=== PATIENT | male | born 1945 | race Caucasian/White ===

== ENCOUNTER → 2023-07-02 07:36 | Outpatient (REF) | payer MEDICARE, OTHER, SELFPAY ==
[2023-07-02 08:16] LABS: % Basophils 0.5 % (0-2); % Eosinophils 2.5 % (0-6); % Immature Granulocytes 0.3 % (0-0.5); % Lymphocytes 27.4 % (20.5-51.1); % Monocytes 10.2 % (1.7-9.3); % Neutrophils 59.1 % (42.2-75.2); Absolute Eosinophils 0.2 10^3/uL (0-0.7); Absolute Lymphocytes 1.7 10^3/uL (1.2-3.4); Absolute Monocytes 0.6 10^3/uL (0.1-0.6); Absolute Neutrophils 3.6 10^3/uL (1.4-6.5); Hematocrit 49.1 % (39.0-52.0); Hemoglobin 16.6 g/dL (13.0-18.0); Mean Corp Hgb Conc. 33.8 g/dL (33.0-37.0); Mean Corpuscular Hgb 30.3 pg (27.0-31.0); Mean Corpuscular Volume 89.6 fL (80.0-94.0); Mean Platelet Volume 9.3 fL (7.4-10.4); Nucleated Red Blood Cells % 0 % (-); Platelet Count 214 10^3/uL (130-400); Red Blood Cell Count 5.48 10^6/uL (4.70-6.10); Red Cell Dist. Width 13.7 % (11.5-14.5); White Blood Cell Count 6.1 10^3/uL (4.8-10.8)
[2023-07-02 09:04] LABS: ALT (SGPT) 35 U/L (0-50); AST (SGOT) 32 U/L (17-59); Albumin 4.2 g/dl (3.5-5.0); Alkaline Phosphatase 82 U/L (38-126); Blood Urea Nitrogen 17 mg/dl (9-20); Calcium 9.7 mg/dl (8.4-10.2); Carbon Dioxide 25 mmol/L (22-30); Chloride 106 mmol/L (98-107); Glucose 102 mg/dl (70-99); HDL Cholesterol 63 mg/dl; LDL Cholesterol, Calculated 108 mg/dl; Potassium 4.5 mmol/L (3.5-5.1); Sodium 138 mmol/L (135-145); Total Bilirubin 0.7 mg/dl (0.2-1.3); Total Cholesterol 194 mg/dl (50-199); Total Protein 7.1 g/dl (6.3-8.2); Triglyceride 115 mg/dl (10-149); Very Low Density Lipoprotein 23 mg/dl (0-30); eGFR > 60.00
[2023-07-02 09:23] LABS: TSH Reflex To Free T4 3.91 uIU/ml (0.47-4.68)
== END ==
LOC: REG 07:36
PROVIDERS: ATTENDING PHYSICIAN Internal Medicine
DX: I10 Essential (primary) hypertension (principal); R06.02 Shortness of breath; R53.83 Other fatigue
CPT/HCPCS: 36415; 80053; 80061; 84443; 85025

== ENCOUNTER 2024-01-15 08:21 | Emergency (ER) | payer MEDICARE, OTHER, SELFPAY ==
[2024-01-15] VITALS (14 sets, daily range): BP systolic 119–156; BP diastolic 78–104; PULSE 57–65
--- NOTE | 2024-01-15 08:54 | ED.GENMED ---
History of Present Illness
General
Chief Complaint: Fall
Source: patient, records and family
Time Seen by Provider: 01/15/24 08:35
History of Present Illness
History of Present Illness:
This patient is a very pleasant 79-year-old male who was feeling his usual self when he woke up. He fed the deer as he typically does and then went for a walk. As he was walking he had the somewhat abrupt onset of lightheadedness and promptly fell
down. He did hit his head and has an abrasion to the left forehead as a result. He states that people were nearby and promptly came over to him, he was conscious at that time but he suspects that he did lose consciousness, lasting just a few
seconds to less than a minute. He describes falling over and trying to hold onto the mailbox, and the mailbox fell down with him. He denies neck pain, severe headache, change in vision, numbness, tingling, focal weakness, or other complaints. He
says he still feels slight lightheadedness. He denies chest pain, dyspnea, nausea, vomiting. He is up-to-date on tetanus. 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 Echo from that visit
reviewed by me.
Past History
Past History
ED Past Medical History: GERD and Other (PE); Negative HTN or IDDM
ED Past Surgical History: Appendectomy, Orthopedic and Other
Social History
Tobacco: Non-smoker
Alcohol: Daily
Drug: None
Personal:
Living: with family
Employment: Retired
Family History
Family History: Other (Brother with an [place] at 50 years old)
Phy Exam
Physical Exam
Physical Exam:
GENERAL: Alert , in no apparent distress, pleasant, making jokes
EYE: pupils equal and reactive, EOMI, no nystagmus, no photophobia
NECK: Supple, no significant adenopathy, no midline tenderness.
ENT: o/p clr, mmm, no brunson, no raccoon..
CARDIAC: Regular rate and rhythm .
LUNGS: Clear breath sounds bilaterally, no acute respiratory distress, no wheezes/rales/rhonchi
ABDOMEN: Soft, without focal tenderness, no r/g, no cvat
NEUROLOGICAL: Alert and oriented, no focal neuro deficits, motor 5 out of 5, sensory intact, cranial nerves II through XII intact
SKIN: Warm and dry, skin intact except for superficial abrasion x 2 noted at the left forehead and just superior to the left lateral eyebrow area without actual laceration or active bleeding.
MUSCULOSKELETAL: No edema, well perfused.
PSYCH: Normal and appropriate interaction.
Course
Orders/Labs/Results
Orders:
Orders
01/15/24 08:31
Electrocardiogram (*1) Urgent
Reason for Study: Syncope
EKG- Treatment ONCE
01/15/24 08:51
Basic Metabolic Panel Urgent
Complete Blood Count/With Diff Urgent
Troponin I Urgent
01/15/24 08:53
CT Head W/o Iv Contrast Urgent
Comment:
Reason For Exam: fall on doac
01/15/24 08:[address] Non Medication Order As Directed
Physician Order: orthostatics
Above order entered?: Yes
01/15/24 11:33
Echo 2D MMode Color/Doppler Urgent
Reason for Study: abrupt syncope, h/o PE
Cardiology Consult: Dex Price
Comment: Can come over from the ER. WE.
Abnormal Lab Results
01/15/24
08:51
MCH 31.4 H pg
(27.0-31.0)
Absolute Monos (auto) 0.7 H 10^3/uL
(0.1-0.6)
Monocytes % 11.2 H %
(1.7-9.3)
Carbon Dioxide 21 L mmol/L
(22-30)
Glucose 105 H mg/dl
(70-99)
01/15/24 08:51
01/15/24 08:51
Vital Signs
Initial and Last Documented VS:
Initial Vital Signs
Temp Pulse Resp BP Pulse Ox
98.0 F 56 18 135/99 98
01/15/24 08:28 01/15/24 08:28 01/15/24 08:28 01/15/24 08:28 01/15/24 08:28
Last Documented Vital Signs
Temp Pulse Resp BP Pulse Ox
98.0 F 57 13 145/84 98
01/15/24 08:28 01/15/24 15:00 01/15/24 15:00 01/15/24 15:00 01/15/24 08:28
*Critical Care Note
Total Time (30-74mins, 75-104mins- exclusive of procedures): Not Applicable
Update Note
Update Note:
Patient presents to the Emergency Department with ____fall/syncope
Number and Complexity of Problems Addressed at the Encounter
� Chronic conditions affecting care:
� Acute Exacerbation and/or Progression of Chronic Illness:
� Differential Diagnosis includes: But not limited to intracranial bleed, arrhythmia, hypovolemia, vasovagal event, etc.
Amount and/or Complexity of Data to be Reviewed and Analyzed
� I performed an independent evaluation of and my interpretation is:
EKG: Read by me, sinus bradycardia, incomplete right bundle, no acute ischemia
CT: head ct nad
Xrays:
Laboratory Studies:generally unremarkable
Other:echo from today: Normal left ventricular size, wall thickness and systolic function. No regional
wall motion abnormalities are seen. LV ejection fraction is 60-65%.
Mild mitral regurgitation.
Mild tricuspid regurgitation.
Compared to the previous echo from Mar 2023, there is no significant change.
� Review of other/old records reveals: Patient had a similar event in 2015, was discharged from the hospital/ER and followed up with cardiology without any specific new recommendations and is followed yearly by cardiology.
Echocardiogram March 2023 shows an LV EF of 65 to 70%, normal LV size, normal diastolic and systolic function, no wall motion abnormalities noted
� Clinical information was obtained by an independent historian: Daughter and were at bedside
� Prescriptions/Medications Considered but not given:
� Further testing considered but not performed: Given lack of cervical tenderness or neurological findings distracting injury or confusion, can defer CT of cervical spine
Risk of Complications and/or Morbidity or Mortality of Patient Management
� Social determinants of health affecting care:
� Discussion with other providers (PCP, Hospitalists, Consultants, etc):
� Escalation of care including admission/observation vs risk of discharge considered: Case discussed with cardiology who saw patient in consult, performed an echocardiogram which was generally unremarkable, and plan to place a
Holter monitor on the patient before discharge. Discussed with patient importance of follow-up and reasons return to the ER
ED Attending Note
-
Portions of this chart may have been created with voice recognition software.� Occasional wrong word or��sound alike� substitutions may have occurred due to the inherent limitations of voice recognition software.
Discharge Plan
Departure
Patient Disposition: Home (Routine Discharge)
Date of Disposition: 01/15/24
Time of Disposition: 14:42
Patient with high blood pressure during this ER visit?: Yes
Condition: Good
Discharge Problem:
Syncope
Instructions: Syncope (fainting), Head Injury in Adults (DC), Skin Abrasions (DC), BLOOD PRESSURE
Prescriptions:
No Action
Eliquis 5 mg Tablet
10 mg PO BID Qty: 90 0RF
Rx Instructions:
10 mg bid for 7 days for 7 days and
5 mg bid after
Referrals:
Gissell Nieto MD [Family Provider] - Next open appointment
Activity Restrictions/Additional Instructions:
PLEASE SEE THE RAILROAD PASSENGER AGENT DIRECTED. IF YOU DEVELOP CHEST PAIN, SHORTNESS OF BREATH, DIZZINESS, SUFFER ANOTHER FALL, BLEEDING, SEVERE HEADACHE, NUMBNESS, OR OTHER WORRISOME SIGNS, RETURN TO THE ER IMMEDIATELY.
Interventions
Interventions:
*Risk Screen - Suicide Last Done: 01/15/24 08:28
*General Assessment Last Done: 01/15/24 08:28
*Neglect/Abuse Screening Last Done: 01/15/24 08:28
ED- Fall Risk Assessment Last Done: 01/15/24 10:41
*ED COVID-19 Vaccine History Last Done: 01/15/24 10:41
*Nursing Disposition Last Done: 01/15/24 15:11
ED- Cardiac Assessment Last Done: 01/15/24 10:41
ED-Musculoskeletal Assessment Last Done: 01/15/24 10:41
ED- Neurological Assessment Last Done: 01/15/24 10:38
ED-Skin Assessment Last Done: 01/15/24 10:41
Discharge Date and Time
Discharge Date/Time: 01/15/24 15:11
Print Language: PANAMANIAN
[2024-01-15 09:04] LABS: % Basophils 0.3 % (0-2); % Eosinophils 2.6 % (0-6); % Immature Granulocytes 0.5 % (0-0.5); % Lymphocytes 24.2 % (20.5-51.1); % Monocytes 11.2 % (1.7-9.3); % Neutrophils 61.2 % (42.2-75.2); Absolute Eosinophils 0.2 10^3/uL (0-0.7); Absolute Lymphocytes 1.6 10^3/uL (1.2-3.4); Absolute Monocytes 0.7 10^3/uL (0.1-0.6); Hematocrit 46.1 % (39.0-52.0); Mean Corp Hgb Conc. 34.7 g/dL (33.0-37.0); Mean Corpuscular Hgb 31.4 pg (27.0-31.0); Mean Corpuscular Volume 90.6 fL (80.0-94.0); Mean Platelet Volume 9.5 fL (7.4-10.4); Nucleated Red Blood Cells % 0 % (-); Platelet Count 186 10^3/uL (130-400); Red Blood Cell Count 5.09 10^6/uL (4.70-6.10); White Blood Cell Count 6.5 10^3/uL (4.8-10.8)
[2024-01-15 09:29] LABS: Troponin I < 0.012 ng/ml
[2024-01-15 09:30] LABS: Blood Urea Nitrogen 20 mg/dl (9-20); Calcium 9.4 mg/dl (8.4-10.2); Carbon Dioxide 21 mmol/L (22-30); Chloride 107 mmol/L (98-107); Glucose 105 mg/dl (70-99); Potassium 3.9 mmol/L (3.5-5.1); Sodium 142 mmol/L (135-145); eGFR > 60.00
--- NOTE | 2024-01-15 12:36 | CON.CAR ---
Addendum entered and electronically signed by Dex Price DO 01/15/24 15:05:
I saw and examined the patient.
The Automatic Hemmer's note was reviewed and I agree with the note.
Comment:
Plan:
Syncope episode possibly vasovagal but no hypotension in ER or orthostasis.
Echo urgent done today shows preserved EF and no significant valve disease
7 day BardyCAM placed today
Discussed conservative measures to avoid dizziness and vasovagal syncope.
EKG no acute changes, trop negative.
he will call with recurrent symptoms
he takes Eliquis for hx of DVT/PE.
He already has follow up arranged with his crystal evaluator Dr Bassam Melchor.
Discussed with ER
Original Note:
Consultation
Consultation Request
Date/Time Consultation Requested: 01/15/24
Date/Time Consultation Performed: 01/15/24
Requesting Provider: Dr. Marshall in the ER
Performing Provider: Dr. Price
Reason for Consultation: Syncope
Medical History
-
History of Present Illness:
Patient came to [facility] today after an episode of syncope and cardiology has been consulted. Patient awoke in his usual state of health and ate breakfast. He was able to carry buckets of deer feed without chest pain, SOB or lightheadedness. Patient
then went on his usual morning walk and when he was close to home he started to feel lightheaded. Patient kept walking and lightheadedness persisted. Patient tried to lean on a neighbor's mailbox and felt himself pass out and start to fall. People
standing near by saw patient fall and helped him stand up. Patient was still a bit lightheaded when he stood up, but was then able to walk back home with the bystander. In [facility] orthostatic VS were normal. No significant pauses on tele. ECG stable
with sinus bradycardia and IC RBBB, QTc 399 by my review. Patient has a h/o lightheadedness and sinus bradycardia that was evaluated with 5 day monitor in 2016 and HR was 46-104 at that time with average HR 64 and no arrhythmia or pauses. Patient
wore a 48 hour Holter monitor 11/2018 with average HR 41-102 bpm and average HR 61 with a 7 beat run of PAT and up to 2 second conversion pauses.
PMH:
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
Chronic Eliquis OAC
HTN
Sinus bradycardia
Past Medical History
Past Medical History: Other (in HPI)
Past Surgical History: Appendectomy and Orthopedic
Social History
Tobacco: Non-Smoker
Alcohol: Occasional (2-4 times a month)
Drug: None
Personal:
Living: With Family
Family History
Family History: CAD
Allergies / Home Medications
Allergy/AdvReac Type Severity Reaction Status Date / Time
No Known Allergies Allergy Verified 01/15/24 08:27
�Medication �Instructions �Recorded �Confirmed �Type
apixaban 5 mg tablet (Eliquis) 10 mg (2 x 5 mg) PO BID #90 tabs 04/01/23 Rx
Review of Systems
-
History Source: Patient and Family ( and daughter bedside helping with HPI)
All other systems: Negative unless noted
Physical Exam
Vital Signs
Temp Pulse Resp BP Pulse Ox
98.0 F 60 12 137/82 98
01/15/24 08:28 01/15/24 12:00 01/15/24 12:00 01/15/24 12:00 01/15/24 08:28
GEN: NAD. AAOx3
HEENT: EOMI, MMM
LUNGS: CTA B/L, no wheezes/rales
CV: Reg, S1/S2, no murmur
ABD: soft, BS+, NT, ND
EXT: +1 B/L LE edema. No clubbing, cyanosis or lesions B/L
NEURO: Gross non-focal
SKIN: Warm, dry and pink. No rash
Lab Results
01/15/24 08:51
01/15/24 08:51
Troponin I < 0.012 ng/ml 01/15/24 08:51
Impression / Plan
-
PCP: Dr. Eliu Abreu
Cardiology: Dr. Norris Melchor
Impression:
Syncope
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
Chronic Eliquis OAC
HTN
Sinus bradycardia
Echo 03/30/2023: EF 65 to 70%, normal RV size and function, trace MR
Plan:
-Patient came to [facility] today after an episode of syncope and cardiology has been consulted. Patient awoke in his usual state of health and ate breakfast. He was able to carry buckets of deer feed without chest pain, SOB or lightheadedness. Patient
then went on his usual morning walk and when he was close to home he started to feel lightheaded. Patient kept walking and lightheadedness persisted. Patient tried to lean on a neighbor's mailbox and felt himself pass out and start to fall. People
standing near by saw patient fall and helped him stand up. Patient was still a bit lightheaded when he stood up, but was then able to walk back home with the bystander. In [facility] orthostatic VS were normal. No significant pauses on tele. ECG stable
with sinus bradycardia and IC RBBB, QTc 399 by my review. Patient has a h/o lightheadedness and sinus bradycardia that was evaluated with 5 day monitor in 2015 and HR was 46-104 at that time with average HR 64 and no arrhythmia or pauses. Patient
wore a 48 hour Holter monitor 11/2018 with average HR 41-102 bpm and average HR 61 with a 7 beat run of PAT and up to 2 second conversion pauses.
-Orthostatic VS repeated by me in the ER and supine 142/80 HR 52, sitting 143/95 HR 58 and standing 156/92 HR 60. Patient was not lightheaded. No evidence of orthostasis currently.
-Tele unremarkable by my review. Arranged for a 7 day CAM monitor to be placed prior to d/c from the ER.
-Check echo prior to d/c from the ER. Look for any changes in RV size/function.
== END 2024-01-15 15:11 | disposition home or self-care (01) ==
LOC: EMR 08:21
PROVIDERS: EMERGENCY PHYSICIAN Emergency Medicine; FAMILY PHYSICIAN Internal Medicine; OTHER PHYSICIAN Nuclear Medicine Nuclear Cardiology
DX: R55 Syncope and collapse (principal); S00.81XA Abrasion of other part of head, initial encounter; W19.XXXA Unspecified fall, initial encounter; R00.1 Bradycardia, unspecified; Z86.711 Personal history of pulmonary embolism; Z86.718 Personal history of other venous thrombosis and embolism; Z79.01 Long term (current) use of anticoagulants; I10 Essential (primary) hypertension; I45.10 Unspecified right bundle-branch block; K21.9 Gastro-esophageal reflux disease without esophagitis; Z90.49 Acquired absence of other specified parts of digestive tract
CPT/HCPCS: 99284; 70450; 80048; 84484; 85025; 93005; 93306

== ENCOUNTER 2024-02-24 10:59 | Day surgery (SDC) | payer MEDICARE, OTHER, SELFPAY ==
[2024-02-24 11:41] VITALS: BMI 31.5
--- NOTE | 2024-02-24 12:44 | ITS.CL.IMPLP ---
Heel Sander Rubber - Implant Loop
Implant Loop
Procedure Report:
Date of Procedure: February 24, 2024
Procedure: Insertable Loop Recorder Implantation
Indication:
Syncope
Procedure:
The patient was brought to the procedure area in a fasting state. The anterior chest was prepped and draped in standard sterile fashion. The fourth intercostal space along the left sternal border was identified and this area was anesthetized with 10
mL of 1% lidocaine. After gathering the skin in this area, a small punch incision was made at approx intercostal space 4-5 at left costo-sternal junction using the provided scalpel/punch tool. The loop recorder was loaded into the tunneling device.
A tunnel was created in the subcutaneous tissue at a 45� angle along the coronal plane away from the sternum and towards the left flank. The tunneling device was inverted and the plunger was depressed, inserting the loop recorder into the
subcutaneous space. The tunneling device was removed. Manual pressure provide hemostasis. Adequate signal was confirmed. The skin was closed with steri-strips. The estimated blood loss was < 1 cc. A clean dressing was placed over the wound.
There were no complications.
Implant:
[employer] Reveal LINQ
Conclusion: Uncomplicated implantation of loop recorder.
Recommendation: Routine ILR care.
== END 2024-02-24 13:00 | disposition home or self-care (01) ==
LOC: CATH 10:59
PROVIDERS: ATTENDING PHYSICIAN Internal Medicine Cardiovascular Disease; FAMILY PHYSICIAN Internal Medicine
DX: R55 Syncope and collapse (principal); I10 Essential (primary) hypertension; Z86.718 Personal history of other venous thrombosis and embolism; Z79.01 Long term (current) use of anticoagulants
CPT/HCPCS: 33285; C1764

== ENCOUNTER → 2024-05-07 08:34 | Outpatient (REF) | payer MEDICARE, OTHER, SELFPAY ==
[2024-05-07 09:56] LABS: % Basophils 0.7 % (0-2); % Eosinophils 3.1 % (0-6); % Immature Granulocytes 0.2 % (0-0.5); % Monocytes 9.8 % (1.7-9.3); % Neutrophils 60.2 % (42.2-75.2); Absolute Eosinophils 0.2 10^3/uL (0-0.7); Absolute Lymphocytes 1.5 10^3/uL (1.2-3.4); Absolute Monocytes 0.6 10^3/uL (0.1-0.6); Absolute Neutrophils 3.5 10^3/uL (1.4-6.5); Hemoglobin 16.5 g/dL (13.0-18.0); Mean Corp Hgb Conc. 33.7 g/dL (33.0-37.0); Mean Corpuscular Hgb 30.8 pg (27.0-31.0); Mean Corpuscular Volume 91.6 fL (80.0-94.0); Nucleated Red Blood Cells % 0 % (-); Platelet Count 215 10^3/uL (130-400); Red Blood Cell Count 5.35 10^6/uL (4.70-6.10); Red Cell Dist. Width 13.2 % (11.5-14.5); White Blood Cell Count 5.8 10^3/uL (4.8-10.8)
[2024-05-07 10:54] LABS: ALT (SGPT) 33 U/L (0-50); AST (SGOT) 34 U/L (17-59); Albumin 4.2 g/dl (3.5-5.0); Alkaline Phosphatase 84 U/L (38-126); Blood Urea Nitrogen 17 mg/dl (9-20); Calcium 9.5 mg/dl (8.4-10.2); Carbon Dioxide 27 mmol/L (22-30); Chloride 103 mmol/L (98-107); Glucose 94 mg/dl (70-99); HDL Cholesterol 63 mg/dl; LDL Cholesterol, Calculated 106 mg/dl; Sodium 138 mmol/L (135-145); Total Bilirubin 0.8 mg/dl (0.2-1.3); Total Cholesterol 198 mg/dl (50-199); Triglyceride 146 mg/dl (10-149); Very Low Density Lipoprotein 29 mg/dl (0-30); eGFR > 60.00
[2024-05-07 11:21] LABS: TSH Reflex To Free T4 4.28 uIU/ml (0.47-4.68)
[2024-05-07 11:40] LABS: Vitamin B12 259 pg/ml (239-931)
== END ==
LOC: REG 08:34
PROVIDERS: ATTENDING PHYSICIAN Internal Medicine
DX: R55 Syncope and collapse (principal); E78.2 Mixed hyperlipidemia; Z79.899 Other long term (current) drug therapy
CPT/HCPCS: 36415; 80053; 80061; 82607; 84443; 85025

== ENCOUNTER → 2024-06-25 07:40 | Outpatient (REF) | payer MEDICARE, OTHER, SELFPAY ==
[2024-06-25 08:51] LABS: % Basophils 0.5 % (0-2); % Immature Granulocytes 1.3 % (0-0.5); % Lymphocytes 25.4 % (20.5-51.1); % Monocytes 11.7 % (1.7-9.3); % Neutrophils 58.1 % (42.2-75.2); Absolute Eosinophils 0.2 10^3/uL (0-0.7); Absolute Immature Granulocytes 0.1 10^3/uL (0-0.05); Absolute Lymphocytes 1.5 10^3/uL (1.2-3.4); Absolute Monocytes 0.7 10^3/uL (0.1-0.6); Absolute Neutrophils 3.5 10^3/uL (1.4-6.5); Mean Corp Hgb Conc. 34.7 g/dL (33.0-37.0); Mean Corpuscular Hgb 32.1 pg (27.0-31.0); Mean Corpuscular Volume 92.6 fL (80.0-94.0); Mean Platelet Volume 9.6 fL (7.4-10.4); Nucleated Red Blood Cells % 0 % (-); Platelet Count 214 10^3/uL (130-400); Red Blood Cell Count 5.29 10^6/uL (4.70-6.10); Red Cell Dist. Width 12.9 % (11.5-14.5)
[2024-06-25 09:59] LABS: ALT (SGPT) 35 U/L (0-50); AST (SGOT) 34 U/L (17-59); Albumin 4.6 g/dl (3.5-5.0); Alkaline Phosphatase 86 U/L (38-126); Blood Urea Nitrogen 18 mg/dl (9-20); Carbon Dioxide 28 mmol/L (22-30); Chloride 104 mmol/L (98-107); Glucose 99 mg/dl (70-99); HDL Cholesterol 59 mg/dl; LDL Cholesterol, Calculated 109 mg/dl; Potassium 4.7 mmol/L (3.5-5.1); Sodium 142 mmol/L (135-145); Total Bilirubin 1.1 mg/dl (0.2-1.3); Total Cholesterol 192 mg/dl (50-199); Total Protein 7.5 g/dl (6.3-8.2); Triglyceride 122 mg/dl (10-149); Very Low Density Lipoprotein 24 mg/dl (0-30); eGFR > 60.00
[2024-06-25 10:28] LABS: TSH Reflex To Free T4 3.71 uIU/ml (0.47-4.68)
== END ==
LOC: REG 07:40
PROVIDERS: ATTENDING PHYSICIAN Internal Medicine
DX: D68.59 Other primary thrombophilia (principal); Z13.220 Encounter for screening for lipoid disorders; I10 Essential (primary) hypertension
CPT/HCPCS: 36415; 80053; 80061; 84443; 85025

== ENCOUNTER → 2024-07-31 07:41 | Outpatient (REF) | payer MEDICARE, OTHER, SELFPAY ==
[2024-07-31 08:25] LABS: % Basophils 0.7 % (0-2); % Eosinophils 2.8 % (0-6); % Lymphocytes 27.3 % (20.5-51.1); % Monocytes 12.7 % (1.7-9.3); % Neutrophils 55.5 % (42.2-75.2); Absolute Eosinophils 0.2 10^3/uL (0-0.7); Absolute Immature Granulocytes 0.1 10^3/uL (0-0.05); Absolute Lymphocytes 1.7 10^3/uL (1.2-3.4); Absolute Monocytes 0.8 10^3/uL (0.1-0.6); Absolute Neutrophils 3.4 10^3/uL (1.4-6.5); Hematocrit 46.7 % (39.0-52.0); Hemoglobin 15.5 g/dL (13.0-18.0); Mean Corp Hgb Conc. 33.2 g/dL (33.0-37.0); Mean Corpuscular Hgb 30.5 pg (27.0-31.0); Mean Corpuscular Volume 91.9 fL (80.0-94.0); Mean Platelet Volume 9.7 fL (7.4-10.4); Nucleated Red Blood Cells % 0 % (-); Platelet Count 212 10^3/uL (130-400); Red Blood Cell Count 5.08 10^6/uL (4.70-6.10)
== END ==
LOC: REG 07:41
PROVIDERS: ATTENDING PHYSICIAN Internal Medicine
DX: R79.89 Other specified abnormal findings of blood chemistry (principal)
CPT/HCPCS: 36415; 85025

== ENCOUNTER → 2024-09-30 08:33 | Outpatient (REF) | payer MEDICARE, OTHER, SELFPAY ==
[2024-09-30 09:06] LABS: Hematocrit 46.4 % (39.0-52.0); Hemoglobin 15.5 g/dL (13.0-18.0); Mean Corp Hgb Conc. 33.4 g/dL (33.0-37.0); Mean Corpuscular Volume 91.0 fL (80.0-94.0); Nucleated Red Blood Cells % 0 % (-); Platelet Count 213 10^3/uL (130-400); Red Cell Dist. Width 13.2 % (11.5-14.5)
== END ==
LOC: REG 08:33
PROVIDERS: ATTENDING PHYSICIAN Internal Medicine
DX: R79.89 Other specified abnormal findings of blood chemistry (principal)
CPT/HCPCS: 36415; 85025